=== PATIENT | female | born 1975 | race Caucasian/White ===

== ENCOUNTER 2017-06-22 05:21 | Inpatient (IN) | payer BC ==
[2017-06-22] MEDS ORDERED: Water For Irrigation,Sterile 1,000 ML Container IRR PRN (05:50)
[2017-06-22] MEDS ORDERED: Sodium Chloride 0.9% 10 ML Syringe FLUSH PRN (05:50)
[2017-06-22] MEDS ORDERED: Nalbuphine 10 MG/1 ML Vial IVPUSH PRN (05:50)
[2017-06-22] MEDS ORDERED: Sodium Chloride 0.9% 2.5 ML Syringe FLUSH PRN (05:50)
[2017-06-22] MEDS ORDERED: Terbutaline 1 MG/ML SDV SUBCUT PRN (05:50)
[2017-06-22] MEDS ORDERED: Butorphanol 1 MG/ML SDV IVPUSH PRN (05:50)
[2017-06-22] MEDS ORDERED: Lidocaine 1% 50 ML MDV INJECT PRN (05:50)
[2017-06-22] MEDS ORDERED: Methylergonovine 0.2 MG/1 ML Amp IM PRN ×2 (05:50→15:00)
[2017-06-22] MEDS ORDERED: Misoprostol 200 MCG Tab PO PRN (05:50)
[2017-06-22] MEDS ORDERED: Carboprost Tromethamine 250 MCG/1 ML Amp IM PRN (05:50)
[2017-06-22] MEDS ORDERED: Oxytocin/Lactated Ringers 30 UNIT/500 ML BAG IV SCH ×2 (06:00)
[2017-06-22] MEDS: Lactated Ringers 1,000 ML IV SCH ×3 (06:28→09:14)
[2017-06-22] MEDS ORDERED: Ropivacaine HCl/PF 0 ML ONE (08:41)
[2017-06-22] MEDS ORDERED: fentaNYL 100 MCG/2 ML SDV ONE (08:44)
[2017-06-22] MEDS ORDERED: Ropivacaine 0.2% 2 MG/ML 20 ML SDV ONE (08:46)
[2017-06-22] MEDS ORDERED: Witch Hazel Medicated Pads 40/Jar TOP PRN (15:00)
[2017-06-22] MEDS ORDERED: Lanolin 100% Cream 7 GM Tube TOP PRN (15:00)
[2017-06-22] MEDS ORDERED: Benzocaine/Menthol 20%-0.5% Spray 78 GM Cannister TOP PRN (15:00)
[2017-06-22] MEDS ORDERED: Bisacodyl 10 MG Supp RECTAL PRN (15:00)
[2017-06-22] MEDS: Ibuprofen 800 MG Tab PO PRN ×2 (16:47→21:30)
[2017-06-22] MEDS: Acetaminophen 500 MG Tab PO PRN (19:42)
--- NOTE | 2017-06-22 21:10 | OR ---
SURGEON: Delaney Jean M.D. DATE OF PROCEDURE: 06/22/2017 PREOPERATIVE DIAGNOSIS: A 39 and 2/7th week intrauterine , advanced maternal age, she lives remote from the hospital. POSTOPERATIVE DIAGNOSIS: A 39 and 2/7th week intrauterine , advanced maternal age, she lives remote from the hospital. PROCEDURE: Pitocin induction of labor, term spontaneous vaginal delivery with repair of second-degree laceration. ANESTHESIA: Epidural. ESTIMATED BLOOD LOSS: Less than 300 mL. FINDINGS: Live-born male, score 8 and 9, weight is pending at the time of dictation. Second-degree perineal laceration repaired. COMPLICATIONS: None known. DISPOSITION: Mother and baby in [facility] in good condition. BRIEF HISTORY: This is a 41-year-old female. She is G5, P3-0-1-3. She presents at 39 and 2/7th weeks' gestation for induction of labor. Initially, 1-2 cm dilated, 40% effaced. She was started on Pitocin. She had category 1 heart tones. She had artificial rupture of membranes. When she was 3-4 cm dilated, soon thereafter, she had an epidural. Following the epidural, she had a period of category 2 heart tones. Pitocin was reduced and then stopped and recovery of normal heart tones resumed. At this point, she was complete. PROCEDURE: With the patient in dorsal lithotomy position, the patient pushed over 45-minute time. The Pitocin was restarted at 4 milliunits per minute while she was pushing. She progressed to a 5+ station, at which time the head was delivered spontaneously and atraumatically over the perineum with support, subsequent delivery of the 's shoulders and body without any difficulty. The infant was bulb suctioned by nose and mouth. Cord was clamped x2 and cut and the was handed to the mother in the presence of the nurse attending delivery. The was a liveborn male, score 8 and 9, weight is pending at the time of dictation. Cord blood was collected for cord ABGs as well as routine cord blood sampling. Pitocin was initiated after delivery of the infant to assist with delivery of the placenta which was delivered spontaneously, Schultze intact with 3 vessels. Upon inspection of the pelvis and perineum, there was a second-degree perineal laceration. There were no vaginal sidewall, cervical, rectal, or perineal lacerations. EBL was less than 300 mL. There were no known complications. Mother and remained in Recovery in good condition. JAX AGUSTIN /[id number]
[2017-06-22] MEDS: oxyCODONE 5 MG Tab PO PRN (21:29)
[2017-06-22] MEDS: Docusate Sodium 100 MG Cap PO PRN (21:30)
[2017-06-23] MEDS: Ibuprofen 800 MG Tab PO PRN (08:22)
[2017-06-23] MEDS: Docusate Sodium 100 MG Cap PO PRN (08:22)
[2017-06-23] MEDS: oxyCODONE 5 MG Tab PO PRN ×2 (08:23→13:46)
--- NOTE | 2017-06-23 08:29 | PCM.PNPP ---
- General Info Date of Service: 06/23/17 Functional Status: Reports: Pain Controlled, Tolerating Diet, Ambulating - Review of Systems General: Reports: No Symptoms HEENT: Reports: No Symptoms Pulmonary: Reports: No Symptoms Cardiovascular: Reports: No Symptoms Gastrointestinal: Reports: No Symptoms Genitourinary: Reports: No Symptoms Musculoskeletal: Reports: No Symptoms Skin: Reports: No Symptoms Neurological: Reports: No Symptoms Psychiatric: Reports: No Symptoms - General Info Date of Service: 06/23/17 - Patient Data Vital Signs - Most Recent: Last Vital Signs Temp 36.6 C 06/23/17 06:18 Pulse 76 06/23/17 06:18 Resp 16 06/23/17 06:18 BP 104/57 L 06/23/17 06:18 Pulse Ox 98 06/23/17 06:18 Weight - Most Recent: 110.223 kg Lab Results - Last 24 Hours: Laboratory Results - last 24 hr 06/23/17 Range/Units 05:09 Hgb 9.3 L (12.0-16.0) g/dL Hct 27.9 L (36.0-46.0) % Med Orders - Current: Current Medications Acetaminophen (Tylenol Extra Strength) 1,000 mg PO Q4H PRN PRN Reason: Pain Last Admin: 06/22/17 19:42 Dose: 1,000 mg Benzocaine/Menthol (Dermoplast Pain Relief 20%-0.5% Sabattus) 78 gm TOP ASDIRECTED PRN PRN Reason: Perineal Comfort Measure Last Admin: 06/22/17 16:47 Dose: 1 can Bisacodyl (Dulcolax) 10 mg RECTAL .ONCE PRN PRN Reason: Constipation Docusate Sodium (Colace) 100 mg PO BID PRN PRN Reason: Constipation Last Admin: 06/23/17 08:22 Dose: 100 mg Emollient Ointment (Lansinoh Hpa) 0 gm TOP ASDIRECTED PRN PRN Reason: Sore Nipples Last Admin: 06/22/17 16:47 Dose: 1 tube Ibuprofen (Motrin) 800 mg PO Q6H PRN PRN Reason: Pain Last Admin: 06/23/17 08:22 Dose: 800 mg Methylergonovine Maleate (Methergine) 0.2 mg IM .ONCE PRN PRN Reason: Excessive Vaginal Bleeding Oxycodone HCl (Oxycodone) 5 mg PO Q2H PRN PRN Reason: Pain Last Admin: 06/23/17 08:23 Dose: 5 mg Witch Desiree (Tucks) 1 pad TOP ASDIRECTED PRN PRN Reason: comfort care Last Admin: 06/22/17 16:47 Dose: 1 tub Discontinued Medications Butorphanol Tartrate (Stadol) 1 mg IVPUSH ASDIRECTED PRN PRN Reason: Pain Carboprost Tromethamine (Hemabate Ds) 250 mcg IM ASDIRECTED PRN PRN Reason: Post Hemorrhage Fentanyl (Sublimaze) Confirm Administered Dose 100 mcg .ROUTE .[employer]-MED ONE Stop: 06/22/17 08:45 Last Admin: 06/22/17 10:19 Dose: Not Given Lactated Ringer's (Ringers, Lactated) 1,000 mls @ 150 mls/hr IV ASDIRECTED DENISHA Last Admin: 06/22/17 09:14 Dose: 150 mls/hr Oxytocin/Lactated Ringer's (Pitocin In Lr 30 Units/500 Ml) 30 unit in 500 mls @ 999 mls/hr IV TITRATE DENISHA PRN Reason: 999 MUNITS/MIN Stop: 06/22/17 06:31 Last Admin: 06/22/17 15:14 Dose: Not Given Oxytocin/Lactated Ringer's (Pitocin In Lr 30 Units/500 Ml) 30 unit in 500 mls @ 2 mls/hr IV TITRATE DENISHA; 2 MUNITS/MIN PRN Reason: Protocol Last Titration: 06/22/17 14:29 Dose: 999 mls/hr Ropivacaine (Naropin 0.2%) Confirm Administered Dose 100 mls @ as directed .ROUTE .[employer]-MED ONE Stop: 06/22/17 08:42 Last Admin: 06/22/17 10:19 Dose: Not Given Ropivacaine/Fentanyl/NS (Fentanyl 2 Mcg-Ropiv 0.2%-Ns) Confirm Administered Dose 100 mls @ as directed .ROUTE .[employer]-MED ONE Stop: 06/22/17 08:44 Last Admin: 06/22/17 10:19 Dose: Not Given Lidocaine HCl (Xylocaine 1%) 50 ml INJECT .ONCE PRN PRN Reason: Laceration repair Methylergonovine Maleate (Methergine) 0.2 mg IM ASDIRECTED PRN PRN Reason: Post Hemorrhage Misoprostol (Cytotec) 200 mcg PO .ONCE PRN PRN Reason: Post Hemorrhage Nalbuphine HCl (Nubain) 10 mg IVPUSH ASDIRECTED PRN PRN Reason: Pain (severe 7-10) Stop: 06/24/17 05:51 Ropivacaine (Naropin 0.2%) Confirm Administered Dose 20 ml .ROUTE .STK-MED ONE Stop: 06/22/17 08:47 Last Admin: 06/22/17 10:20 Dose: Not Given Sodium Chloride (Saline Flush) 10 ml FLUSH ASDIRECTED PRN PRN Reason: Keep Vein Open Sodium Chloride (Saline Flush) 2.5 ml FLUSH ASDIRECTED PRN PRN Reason: Keep Vein Open Sterile Water (Sterile Water For Irrigation) 1,000 ml IRR ASDIRECTED PRN PRN Reason: delivery Last Admin: 06/22/17 16:47 Dose: 1,000 ml Terbutaline Sulfate (Brethine) 0.25 mg SUBCUT ASDIRECTED PRN PRN Reason: Tacysystole - Infant Interaction Support Person: - Recovery Exam Fundal Tone: Firm Fundal Level: 1 Fingerbreadths Below Umbilicus Fundal Placement: Midline Lochia Amount: Small Lochia Color: Rubra/Red - Exam General: Alert, Oriented Neck: Supple Lungs: Normal Respiratory Effort GI/Abdominal Exam: No Mass Extremities: Non-Tender, No Pedal Edema Skin: Warm, Dry, Intact Wound/Incisions: Healing Well Neurological: No New Focal Deficit Psy/Mental Status: Alert, Normal Affect, Normal Mood - Problem List & Annotations (1) Vaginal delivery SNOMED Code(s): 907498202 Code(s): O80 - ENCOUNTER FOR FULL-TERM UNCOMPLICATED DELIVERY Status: Acute Current Visit: No - Problem List Review Problem List Initiated/Reviewed/Updated: Yes - My Orders Last 24 Hours: My Active Orders 06/22/17 15:00 Patient Status [ADT] Routine May Shower [RC] ASDIRECTED [employer] [place] [RC] ASDIRECTED Vital Signs [RC] PER UNIT ROUTINE Acetaminophen [Tylenol Extra Strength] 1,000 mg PO Q4H PRN Benzocaine/Menthol [Dermoplast Pain Relief 20%-0.5% Sabattus] 78 gm TOP ASDIRECTED PRN Bisacodyl [Dulcolax] 10 mg RECTAL .ONCE PRN Docusate Sodium [Colace] 100 mg PO BID PRN Ibuprofen [Motrin] 800 mg PO Q6H PRN Lanolin [Lansinoh HPA] See Dose Instructions TOP ASDIRECTED PRN Methylergonovine [Methergine] 0.2 mg IM .ONCE PRN Witch Desiree [Tucks] 1 pad TOP ASDIRECTED PRN oxyCODONE 5 mg PO Q2H PRN Assess Lochia [WOMSER] Per Unit Routine Assess Uterine Involution [WOMSER] Per Unit Routine Peripheral IV Discontinue [OM.PC] Routine Resuscitation Status Routine 06/22/17 15:01 Perineal Care [OM.PC] Per Unit Routine 06/22/17 Dinner Regular Diet [DIET] 06/23/17 08:24 Ready for Discharge [RC] PER UNIT ROUTINE - Assessment Assessment:: PPD#1 after stable, minimal lochia, using some oxycodone for perineal pain. would like to go home this afternoon. States she is doing well on escitalopram, will continue. - Plan Plan:: discharge instructions reviewed. support today.
[2017-06-23 09:08] VITALS: BP 106/62
[2017-06-23] MEDS ORDERED: Ondansetron 4 MG Tab.DIS PO ONE (09:47)
[2017-06-23] MEDS: Acetaminophen 500 MG Tab PO PRN (13:46)
== END 2017-06-23 17:45 | disposition home or self-care (01) | DRG 560 ==
LOC: MW.OBCHECK 05:21 → MW.OB 05:23 → MW.OBCHECK 05:50 → MW.OB 05:50 → OBSVTOIN 14:27
PROVIDERS: ADMIT Obstetrics & Gynecology; ATTEND Obstetrics & Gynecology
PROC: 10E0XZZ Delivery of Products of Conception, External Approach (ICD-10-PCS; principal; 2017-06-22)
PROC: 3E033VJ Introduction of Other Hormone into Peripheral Vein, Percutaneous Approach (ICD-10-PCS; 2017-06-22)
PROC: 10907ZC Drainage of Amniotic Fluid, Therapeutic from Products of Conception, Via Natural or Artificial Opening (ICD-10-PCS; 2017-06-22)
PROC: 0KQM0ZZ Repair Perineum Muscle, Open Approach (ICD-10-PCS; 2017-06-22)
DX: O70.1 Second degree perineal laceration during delivery (principal); O09.523 Supervision of elderly multigravida, third trimester; Z3A.39 39 weeks gestation of pregnancy; Z37.0 Single live birth
CPT/HCPCS: 36415; 59409; 85014; 85018; 85027; 86850; 86900; 86901; A9270-GY; J7120

== ENCOUNTER 2019-10-03 09:05 | Day surgery (SDC) | payer BC ==
[~2019-10-03 09:05] MED LIST: Glycopyrrolate 0.2 MG/ML SDV ONE; Ketorolac 30 MG/ML SDV ONE; Lactated Ringers 1,000 ML IV SCH; Lidocaine 2% 5 ML SDV ONE; Midazolam 1 MG/ML 2 ML SDV ONE; Ondansetron 4 MG/2 ML SDV ONE; Propofol 200 MG/20 ML SDV ONE; fentaNYL 100 MCG/2 ML SDV ONE
--- NOTE | 2019-10-03 09:54 | PCM.PREANE ---
Preanesthetic Assessment - Anesthesia/Transfusion/Family Hx Anesthesia History: Prior Anesthesia Without Reaction Other Type of Anesthesia Reaction Comment: Denies any known problems, no family hx: problems Family History of Anesthesia Reaction: No Transfusion History: No Prior Transfusion(s) - Review of Systems General: No Symptoms Pulmonary: No Symptoms Cardiovascular: No Symptoms Gastrointestinal: No Symptoms Neurological: No Symptoms Other: Reports: None - Physical Assessment NPO Status Date: 10/02/19 Height: 5 ft 5 in Weight: 77.111 kg ASA Class: 2 Mental Status: Alert & Oriented x3 Airway Class: Mallampati = 2 Dentition: Reports: Normal Dentition ROM/Head Extension: Full Lungs: Clear to Auscultation, Normal Respiratory Effort Cardiovascular: Regular Rate, Regular Rhythm - Lab Values: Laboratory Last Values WBC 8.34 K/uL (4.0-11.0) 10/03/19 09:23 RBC 4.63 M/uL (4.30-5.90) 10/03/19 09:23 Hgb 14.1 g/dL (12.0-16.0) 10/03/19 09:23 Hct 41.5 % (36.0-46.0) 10/03/19 09:23 MCV 89.6 fL (80.0-98.0) 10/03/19 09:23 MCH 30.5 pg (27.0-32.0) 10/03/19 09:23 MCHC 34.0 g/dL (31.0-37.0) 10/03/19 09:23 RDW Std Deviation 39.7 fl (28.0-62.0) 10/03/19 09:23 RDW Coeff of Sujatha 12 % (11.0-15.0) 10/03/19 09:23 Plt Count 341 K/uL (150-400) 10/03/19 09:23 MPV 9.20 fL (7.40-12.00) 10/03/19 09:23 - Allergies Allergies/Adverse Reactions: Allergies Allergy/AdvReac Type Severity Reaction Status Date / Time No Known Allergies Allergy Verified 09/27/19 10:51 - Blood Blood Available: No - Anesthesia Plan Pre-Op Medication Ordered: None - Acknowledgements Anesthesia Type Planned: General Anesthesia Pt an Appropriate Candidate for the Planned Anesthesia: Yes Alternatives and Risks of Anesthesia Discussed w Pt/Guardian: Yes Pt/Guardian Understands and Agrees with Anesthesia Plan: Yes PreAnesthesia Questionnaire - Past Health History Medical/Surgical History: Denies Medical/Surgical History HEENT History: Reports: Other (See Below) Other HEENT History: wears glasses Gastrointestinal History: Reports: [employer] History: Reports: Dysfunctional Uterine Bleeding, , Spontaneous Neurological History: Reports: Migraines Psychiatric History: Reports: Anxiety, Depression Endocrine/Metabolic History: Reports: Hyperthyroidism Other Endocrine/Metabolic History: Radiation 7-8 years ago - Past Surgical History Female Surgical History: Reports: D&C Endocrine Surgical History: Reports: Other (See Below) Other Endocrine Surgeries/Procedures: had radiation treatment for Hyperthyroidism 8 years ago - SUBSTANCE USE Smoking Status *Q: Never Smoker Recreational Drug Use History: No - HOME MEDS Home Medications: Home Meds Aspirin/Butalbital/Caffeine [Fiorinal] 1 cap PO Q6H PRN 03/30/14 [History] Ergocalciferol (Vitamin D2) 50,000 unit PO ASDIRECTED 03/30/14 [History] Ondansetron [Zofran] 4 mg PO Q4H PRN 03/30/14 [History] ALPRAZolam [Xanax] 1 mg PO ASDIRECTED PRN 09/27/19 [History] PARoxetine [Paxil] 20 mg PO DAILY 09/27/19 [History] Pantoprazole Sodium [Protonix] 40 mg PO DAILY 09/27/19 [History] - CURRENT (IN HOUSE) MEDS Current Meds: Current Medications Lactated Ringer's (Ringers, Lactated) 1,000 mls @ 125 mls/hr IV ASDIRECTED DENISHA Discontinued Medications Fentanyl (Sublimaze) Confirm Administered Dose 100 mcg .ROUTE .STK-MED ONE Stop: 10/03/19 09:00 Glycopyrrolate (Robinul) Confirm Administered Dose 0.2 mg .ROUTE .STK-MED ONE Stop: 10/03/19 09:02 Ketorolac Tromethamine (Toradol) Confirm Administered Dose 30 mg .ROUTE .STK- MED ONE Stop: 10/03/19 09:02 Lidocaine (Xylocaine-Mpf 2%) Confirm Administered Dose 5 ml .ROUTE .STK-MED ONE Stop: 10/03/19 09:02 Midazolam HCl (Versed 1 Mg/Ml) Confirm Administered Dose 2 mg .ROUTE .STK-MED ONE Stop: 10/03/19 09:00 Ondansetron HCl (Zofran) Confirm Administered Dose 4 mg .ROUTE .STK-MED ONE Stop: 10/03/19 09:02 Propofol (Diprivan 20 Ml) Confirm Administered Dose 200 mg .ROUTE .STK-MED ONE Stop: 10/03/19 09:00
[2019-10-03] MEDS ORDERED: Phenylephrine/Normal Saline 100 MCG/ML 10 ML Syringe ONE (10:51)
--- NOTE | 2019-10-03 11:46 | PCM.OPNOTE ---
- General Post-Op/Procedure Note Date of Surgery/Procedure: 10/03/19 Operative Procedure(s): diagnostic hysteroscopy D&C and thermal endometrial ablation Findings: Normal uterine cavity, anteverted, sounds to 8 cm. Pre Op Diagnosis: heavy periods Post-Op Diagnosis: Same Anesthesia Technique: General LMA Primary Surgeon: Delaney Jean (\) Anesthesia Provider: John Carranza Pathology: endometrial curettings EBL in mLs: 10 Drain/Tube Comments:: hysteroscopic deficit 10 ml Complications: None Known Condition: Good
--- NOTE | 2019-10-03 13:03 | OR ---
SURGEON: Delaney Jean M.D. DATE OF PROCEDURE: 10/03/2019 PREOPERATIVE DIAGNOSIS: Menorrhagia. POSTOPERATIVE DIAGNOSIS: Menorrhagia. PROCEDURES: Diagnostic hysteroscopy, D and C, and thermal endometrial ablation. PRIMARY SURGEON: Delaney Jean MD. ANESTHESIA: General. ESTIMATED BLOOD LOSS: Less than 10 mL. HYSTEROSCOPIC DEFICIT: 5 mL. FLUIDS: 800 mL of crystalloid. FINDINGS: Uterus anteverted, 8-week size, sounds to 8 cm. The cervical length is 4 cm, leaving the uterine fundus at 4 cm. Bilateral tubal ostia were identified on hysteroscopy. There were no lesions, no polyps, no fibroids. COMPLICATIONS: None known. DISPOSITION: Stable to recovery. PATHOLOGY SPECIMEN: Endometrial curettings. BRIEF HISTORY: This is a 44-year-old female. She has a long history of heavy periods. She does not desire any future children. She has permanent sterilization, and she desires to proceed with hysteroscopy, D and C, and thermal endometrial ablation with risks discussed including bleeding, infection, uterine perforation with injury to surrounding organs, risk of causing hematometra, and she understands that in the future she must never become as there is no place for the embryo to implant. Understanding all these issues, she does desire to proceed with the thermal endometrial ablation with hysteroscopy and D and C. DESCRIPTION OF PROCEDURE: With the patient in dorsal lithotomy position, under adequate general analgesia, the perineum and vagina were prepped with Betadine and draped in the usual fashion for vaginal surgery. SCDs were in place. The bladder had been drained with a straight cath and an appropriate time-out was held. Bimanual examination revealed an 8-week size anteverted uterus. Speculum was placed in the vagina. The cervix did not require dilatation and was sounded to an 8 cm fundus, 4 cm cervical length. The hysteroscope was placed into the uterine cavity without any difficulty and bilateral tubal ostia were identified. There were no lesions to be removed and therefore the hysteroscopy was complete, finding of a normal endometrial cavity. Then, a sharp endometrial curettage was performed with a small amount of tissue obtained. This was sent to pathology. The Magdalena ablation system was then prepared and the depth was set at 4 cm. The cervix was somewhat patulous; and therefore, we attempted to proceed to the safety check 3 times before I was finally able to adjust the cervix in such a way that the balloon was able to hold the CO2 within the uterine cavity. Once the safety check was complete, the 2-minute treatment cycle was performed, and once this was complete, the balloon was desufflated, the arms were retracted, and the Magdalena device was removed from the uterus. All the instruments were removed from the vagina. Final sponge, needle, and instrument counts were reported as correct. There were no known complications. The patient was transferred to recovery in good condition. JAX AGUSTIN /[id number] MTDD
[2019-10-03 13:22] VITALS: BP 110/64; PULSE 63
--- NOTE | 2019-10-03 14:04 | PCM48HPAN ---
Post Anesthesia Note - EVALUATION WITHIN 48HRS OF ANESTHETIC Vital Signs in Normal Range: Yes Patient Participated in Evaluation: Yes Respiratory Function Stable: Yes Airway Patent: Yes Cardiovascular Function Stable: Yes Hydration Status Stable: Yes Pain Control Satisfactory: Yes Nausea and Vomiting Control Satisfactory: Yes Mental Status Recovered: Yes Vital Signs: Last Vital Signs Temp 97.3 F 10/03/19 11:57 Pulse 63 10/03/19 13:15 Resp 15 10/03/19 13:15 BP 110/64 10/03/19 13:15 Pulse Ox 100 10/03/19 13:15
--- NOTE | 2019-10-03 14:04 | PCM.POSTAN ---
POST ANESTHESIA ASSESSMENT - MENTAL STATUS Mental Status: Alert, Oriented - VITAL SIGNS Vital Signs: Last Vital Signs Temp 97.3 F 10/03/19 11:57 Pulse 63 10/03/19 13:15 Resp 15 10/03/19 13:15 BP 110/64 10/03/19 13:15 Pulse Ox 100 10/03/19 13:15 - RESPIRATORY Respiratory Status: Respiratory Rate WNL, Airway Patent, O2 Saturation Stable - CARDIOVASCULAR CV Status: Pulse Rate WNL, Blood Pressure Stable - GASTROINTESTINAL GI Status: No Symptoms - POST OP HYDRATION Hydration Status: Adequate & Stable
== END 2019-10-03 13:15 | disposition home or self-care (01) ==
LOC: MW.SDS 09:05
PROVIDERS: ATTEND Obstetrics & Gynecology
DX: N92.0 Excessive and frequent menstruation with regular cycle (principal); K21.9 Gastro-esophageal reflux disease without esophagitis; K58.9 Irritable bowel syndrome, unspecified; G43.909 Migraine, unspecified, not intractable, without status migrainosus; F41.9 Anxiety disorder, unspecified; F32.9 Major depressive disorder, single episode, unspecified; Z79.899 Other long term (current) drug therapy
CPT/HCPCS: 36415; 58563; 84703; 85027; J1885; J2001; J2250; J2370; J2405; J2704; J3010; J3490; J7120; 00952

== ENCOUNTER 2022-05-15 08:30 | Day surgery (SDC) | payer OTHER ==
[~2022-05-15 08:30] MED LIST changes: -Glycopyrrolate 0.2 MG/ML SDV ONE; -Ketorolac 30 MG/ML SDV ONE; -Lidocaine 2% 5 ML SDV ONE; -Midazolam 1 MG/ML 2 ML SDV ONE; -Ondansetron 4 MG/2 ML SDV ONE; -Propofol 200 MG/20 ML SDV ONE; +Sodium Chloride 0.9% 10 ML Syringe FLUSH PRN; +Sodium Chloride 0.9% 2.5 ML Syringe FLUSH PRN; +Sodium Chloride 0.9% 20 ML SDV IV PRN; -fentaNYL 100 MCG/2 ML SDV ONE
[2022-05-15] MEDS ORDERED: Propofol 200 MG/20 ML SDV ONE (09:55)
[2022-05-15] MEDS ORDERED: Lidocaine 2% 5 ML SDV ONE (09:55)
[2022-05-15] MEDS ORDERED: fentaNYL 100 MCG/2 ML SDV ONE (09:59)
[2022-05-15 11:40] VITALS: BP 92/54; PULSE 56
== END 2022-05-15 11:10 | disposition home or self-care (01) ==
LOC: MW.SDS 08:30
PROVIDERS: ATTEND Surgery
DX: K57.31 Diverticulosis of large intestine without perforation or abscess with bleeding (principal); K21.9 Gastro-esophageal reflux disease without esophagitis; K44.9 Diaphragmatic hernia without obstruction or gangrene; R13.10 Dysphagia, unspecified; K64.3 Fourth degree hemorrhoids; F41.9 Anxiety disorder, unspecified; F32.A Depression, unspecified; Z79.899 Other long term (current) drug therapy; Z98.890 Other specified postprocedural states
CPT/HCPCS: 43239; 45378; 81025; J2704; J3010; J7120; 00813

== ENCOUNTER 2023-12-18 02:15 | Observation (INO) | payer OTHER ==
[2023-12-18] MEDS ORDERED: Naloxone 0.4 MG/ML SDV IVPUSH PRN (02:27)
[2023-12-18] MEDS: Lactated Ringers 1,000 ML IV SCH (02:40)
[2023-12-18] MEDS: Morphine 2 MG/ML SYRINGE IVPUSH PRN ×2 (03:23→20:17)
[2023-12-18] MEDS: Ondansetron 4 MG/2 ML SDV IVPUSH PRN ×2 (03:30→13:36)
[2023-12-18 06:00] LABS: BASOPHILS ABSOLUTE AUTO 0.05 K/uL (0.00-0.20); BASOPHILS PERCENT AUTO 0.5 % (0.0-1.0); EOSINOPHILS ABSOLUTE AUTO 0.05 K/uL (0.00-0.45); EOSINOPHILS PERCENT AUTO 0.5 % (0.0-6.0); HEMATOCRIT 34.9 % (37.0-47.0); HEMOGLOBIN 11.7 g/dL (12.0-16.0); IMMATURE GRAN ABSOLUTE AUTO 0.03 K/uL (0.00-0.05); IMMATURE GRAN PERCENT AUTO 0.3 % (0.0-0.4); LYMPHOCYTES ABSOLUTE AUTO 2.41 K/uL (1.00-4.80); LYMPHOCYTES PERCENT AUTO 24.5 % (24.0-44.0); MEAN CORPUSCULAR HEMOGLOBIN 29.7 pg (28.0-32.0); MEAN CORPUSCULAR HGB CONC 33.5 g/dL (32.0-36.0); MEAN CORPUSCULAR VOLUME 88.6 fL (83.0-99.0); MEAN PLATELET VOLUME 9.1 fL (9.4-12.3); MONOCYTES ABSOLUTE AUTO 0.54 K/uL (0.00-0.80); MONOCYTES PERCENT AUTO 5.5 % (0.0-8.0); NEUTROPHILS ABSOLUTE AUTO 6.74 K/uL (1.80-7.70); NEUTROPHILS PERCENT AUTO 68.7 % (41.0-71.0); PLATELET COUNT,PLT 274 K/uL (150-400); RED BLOOD CELL COUNT 3.94 M/uL (4.10-5.30); WHITE BLOOD CELL COUNT,WBC 9.82 K/uL (3.9-11.3)
[2023-12-18 06:23] LABS: A/G RATIO 0.8 (0.9-1.6); ALBUMIN 2.9 g/dL (3.4-5.0); BILIRUBIN DIRECT 0.1 mg/dL (0.0-0.5); BILIRUBIN INDIRECT 0.2; BILIRUBIN TOTAL 0.3 mg/dL (0.2-1.0); PROTEIN TOTAL,TP 6.4 g/dL (6.4-8.2)
[2023-12-18] MEDS ORDERED: Bupivacaine 0.5% 30 ML SDV ONE (09:32)
[2023-12-18] MEDS ORDERED: Ropivacaine 0.5% 5 MG/ML 30 ML SDV ONE (09:37)
[2023-12-18] MEDS ORDERED: Famotidine 20 MG/2 ML SDV ONE (09:37)
[2023-12-18] MEDS ORDERED: Lidocaine 2% 11 ML Jelly Filled Syringe ONE (09:41)
[2023-12-18] MEDS ORDERED: Propofol 200 MG/20 ML SDV ONE ×3 (09:43→11:06)
[2023-12-18] MEDS ORDERED: propofoL 50 ML ONE (09:43)
[2023-12-18] MEDS ORDERED: Morphine 10 MG/ML SDV ONE (09:43)
[2023-12-18] MEDS ORDERED: fentaNYL 250 MCG/5 ML SDV ONE (09:44)
[2023-12-18] MEDS ORDERED: Piperacillin/Tazobactam 3.375 GM in Sodium Chloride 0.9% 50 ML IV ONE (10:14)
[2023-12-18] MEDS ORDERED: Indocyanine Green 25 MG SDV ONE (10:25)
[2023-12-18] MEDS ORDERED: Rocuronium Bromide 50 MG/5 ML Syringe ONE (10:51)
[2023-12-18] MEDS ORDERED: ePHEDrine 50 MG/ML SDV ONE (10:51)
[2023-12-18] MEDS ORDERED: Ketorolac 30 MG/ML SDV ONE (10:53)
[2023-12-18] MEDS ORDERED: Sugammadex Sodium 200 MG/2 ML VIAL IV ONE (10:55)
[2023-12-18] MEDS ORDERED: fentaNYL 100 MCG/2 ML SDV ONE (10:56)
[2023-12-18] MEDS ORDERED: Lactated Ringers 1,000 ML IV SCH (12:00)
[2023-12-18] MEDS: Metoclopramide 10 MG/2 ML SDV IVPUSH SCH (16:11)
[2023-12-18] MEDS: Sodium Chloride 0.9% 50 ML ONE (16:16)
[2023-12-18] MEDS: Acetaminophen/HYDROcodone 325-5 MG Tab PO PRN (22:23)
[2023-12-19] MEDS: Acetaminophen/HYDROcodone 325-5 MG Tab PO PRN (04:39)
[2023-12-19 10:32] VITALS: BP 104/62; PULSE 80
== END 2023-12-19 11:04 | disposition home or self-care (01) ==
LOC: MW.MS 02:15
PROVIDERS: ADMIT Surgery; ATTEND Surgery
DX: K80.12 Calculus of gallbladder with acute and chronic cholecystitis without obstruction (principal); K21.9 Gastro-esophageal reflux disease without esophagitis; Z79.82 Long term (current) use of aspirin; Z79.899 Other long term (current) drug therapy
CPT/HCPCS: 36415; 47563; 64488; 80076; 85025; 96361; 96374; 96375; 96376; A9270; G0378; J0131; J0665; J1885; J2270; J2405; J2543; J2704; J2765; J2795; J3010; J3490; J7030; J7120; 00790